=== PATIENT | male | born 1995 | race American Indian/Alaskan Native ===

== ENCOUNTER 2017-09-07 19:43 | Emergency (ER) | payer OTHER ==
[~2017-09-07] VITALS: Ht 188 cm; Wt 145.2 kg
[2017-09-07] MEDS ORDERED: DICLOFENAC SODI75 MG PO (22:23)
[2017-09-07] MEDS ORDERED: CYCLOBENZAPRINE10 MG PO (22:23)
== END 2017-09-07 22:39 | disposition home or self-care (01) ==
LOC: ED 19:43
DX: M54.6 Pain in thoracic spine (principal); Z88.5 Allergy status to narcotic agent
CPT/HCPCS: 74176; 80053; 81001; 85025; 96374; 96375; 99284; J1885; J2405

== ENCOUNTER 2017-10-09 05:01 | Emergency (ER) | payer OTHER ==
[~2017-10-09] VITALS: Ht 188 cm; Wt 145.2 kg
[~2017-10-09 05:01] MED LIST: CYCLOBENZAPRINE10 MG PO; DICLOFENAC SODI75 MG PO
== END 2017-10-09 06:10 | disposition home or self-care (01) ==
LOC: ED 05:01
PROC: 0HQFXZZ Repair Right Hand Skin, External Approach (ICD-10-PCS; principal; 2017-10-09)
DX: S61.411A Laceration without foreign body of right hand, initial encounter (principal); Z88.5 Allergy status to narcotic agent; Z23 Encounter for immunization; W26.0XXA Contact with knife, initial encounter
CPT/HCPCS: 12002; 90471; 90715; 99282

== ENCOUNTER 2019-06-17 13:06 | Emergency (ER) | payer MEDICARE, OTHER ==
[~2019-06-17] VITALS: Ht 188 cm; Wt 150.9 kg
[2019-06-17] MEDS ORDERED: CLEOCIN HCL300 MG PO (14:43)
== END 2019-06-17 15:10 | disposition home or self-care (01) ==
LOC: ED 13:06
DX: K04.7 Periapical abscess without sinus (principal); Z88.5 Allergy status to narcotic agent
CPT/HCPCS: 96372; 99282-25; J1100